=== PATIENT | male | born 1965 | race Caucasian/White ===

== ENCOUNTER → 2016-12-31 | Outpatient (CLI) | payer OTHER ==
[~2016-12-31] VITALS: Ht 172.7 cm; Wt 71.3 kg
[~2016-12-31] MED LIST: BUPR-79 PO; CARB1TAB8 PO; ESOM20CA PO; GABA-113 PO; IMT100 PO; OXYC-643 PO; PRAM0.256 PO; PROM25TA PO; PROP20TA67 PO; SUMA6KIT IM; TOPI100T20 PO; TOPI50TA24 PO; ZOLP10TA6 PO
[2016-12-31 13:17] VITALS: BP 122/79; PULSE 58; Ht 172.7 cm; Wt 71.3 kg
== END | disposition home or self-care (01) ==
LOC: C.NEUR 12:57
PROVIDERS: ATTEND Internal Medicine Pulmonary Disease
DX: G47.30 Sleep apnea, unspecified (principal); G25.81 Restless legs syndrome

== ENCOUNTER → 2017-02-28 | Outpatient (CLI) | payer OTHER ==
[~2017-02-28] MED LIST changes: +GADAVIST IV PRN
--- NOTE | 2017-02-28 21:16 | DIAGNOSTIC IMAGING REPORT ---
MRI OF THE BRAIN WITHOUT AND WITH IV CONTRAST CLINICAL HISTORY: Migraine headaches. Remote traumatic history. Abnormal MRI of the brain. COMPARISON STUDY: MRI the brain November 15, 2015. TECHNIQUE: Utilizing a 1.5 Margie magnet and dedicated coil, multiplanar, multiecho imaging of the brain was performed pre and postcontrast administration. IV administration of 7 mL of Gadavist contrast was uneventful. FINDINGS: There are no areas of restricted diffusion. No acute intracranial hemorrhage, midline shift or mass effect is present. A subtle cortical focus of increased T2 signal within the posterior left temporal lobe is unchanged since initial MRI of August 30, 2009. There is no associated enhancement. There is no intracranial mass. Ventricular system is unremarkable. Basilar cisterns are patent. There are no extra-axial collections. Flow-voids for the major intracranial vessels are present. Few punctate foci of white matter T2 hyperintensity are unchanged. No new areas of signal abnormality are identified. IMPRESSION: 1. No acute intracranial findings. 2. No change in appearance of the brain. Stable focus of increased cortical T2 signal within the posterior left temporal lobe since initial MRI of August 30, 2009. 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 No associated enhancement. Electronically signed by: Cachorro Nelson M.D. 02/28/2017 9:14 PM Dictated Date/Time: 02/28/2017 9:04 PM
== END | disposition home or self-care (01) ==
LOC: C.MRI 19:43
PROVIDERS: ATTEND Psychiatry & Neurology Neurology
DX: R94.02 Abnormal brain scan (principal)

== ENCOUNTER → 2017-07-18 | Outpatient (CLI) | payer OTHER ==
[~2017-07-18] VITALS: Ht 172.7 cm; Wt 67.9 kg
[~2017-07-18] MED LIST changes: -BUPR-79 PO; -ESOM20CA PO; -GADAVIST IV PRN
[2017-07-18 08:50] VITALS: BP 127/79; PULSE 64; Ht 172.7 cm; Wt 67.9 kg
== END | disposition home or self-care (01) ==
LOC: C.NEUR 08:25
PROVIDERS: ATTEND Internal Medicine Pulmonary Disease
DX: G47.33 Obstructive sleep apnea (adult) (pediatric) (principal)

== ENCOUNTER 2018-07-08 20:50 | Emergency (ER) | payer OTHER ==
[~2018-07-08] VITALS: Ht 172.7 cm; Wt 69.9 kg
[~2018-07-08 20:50] MED LIST changes: +IBUP-1428 PO; -OXYC-643 PO; -PRAM0.256 PO; +PRAM0.259 PO
[2018-07-08 21:01] VITALS: Ht 172.7 cm; Wt 69.9 kg
[2018-07-08] MEDS ORDERED: PROPARACAINE HCL 0.5% OP SOLN 15 ML BTL OP STA (21:47)
[2018-07-08] MEDS ORDERED: DIPHTHERIA/TETANUS/PERTUSSIS 0.5 ML SYR/VIAL IM. ONE (22:30)
[2018-07-08] MEDS ORDERED: OXYCODONE IR HOME PACK PO ONE (22:45)
[2018-07-08] MEDS ORDERED: CIPROFLOXACIN HCL 0.3% OP SOLN 2.5 ML BTL OP ONE (22:45)
[2018-07-08 23:09] VITALS: BP 123/79; PULSE 64; TEMP 36.7; O2SAT 98
--- NOTE | 2018-07-09 05:36 | EMERGENCY ROOM VISIT NOTE ---
History First contact with patient: 21:47 Chief Complaint: EYE PAIN Stated Complaint: LEFT EYE PAIN History of Present Illness The patient is a 53 year old male who presents to the Emergency Room with complaints of worsening pain in his left eye over the past day. 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 His pain is only in the left eye, and he is having difficulty opening it. Patient also has a history of migraines, and this eye discomfort seems to be causing him some nausea and exacerbated headache symptoms. Patient is unsure of his tetanus status. He is not wearing his glasses because of the pain. Light exacerbates the pain which she currently rates a 10/10. The pain is very sharp and has been slowly increasing over the past several hours. He does not have floaters or flashes of light. No numbness or paresthesias throughout the upper lower extremities. No lightheadedness or dizziness. Review of Systems More than 10 systems were reviewed and otherwise negative with the exception of history of present illness. Past Medical/Surgical History Medical Problems: (1) Finger amputation, traumatic Family History No pertinent family history Social History Smoking Status: Current Every Day Smoker Marital Status: Occupation Status: disabled Current/Historical Medications Scheduled Carbamazepine (Carbamazepine Er), 200 MG PO BID Gabapentin (Neurontin), 300 MG PO HS Pramipexole Dihydrochloride (Pramipexole Dihydrochlori), 0.5 MG PO UD Promethazine (Phenergan), 25 MG PO TID PRN Propranolol (Inderal), 20 MG PO BID Topiramate (Topamax), 50 MG PO QAM Topiramate (Topamax), 100 MG PO HS Scheduled PRN Ibuprofen (Motrin), 800 MG PO BID PRN for Pain Sumatriptan Succinate (Imitrex), 100 MG PO DIRECTED PRN for Migraine Sumatriptan Succinate (Imitrex Statdose), 6 MG IM UD PRN for Migraine Zolpidem Tartrate (Zolpidem Tartrate), 10 MG PO HS PRN for Sleep Physical Exam Vital Signs Date Time Temp Pulse Resp B/P (MAP) Pulse Ox O2 Delivery O2 Flow Rate FiO2 07/08/18 23:09 36.7 64 18 123/79 98 07/08/18 21:01 36.7 64 18 123/79 98 Room Air Right Eye Acuity: no regular corrective glasses: 20/100 Left Eye Acuity: Unable to test: too blurry Physical Exam VITALS: Vitals are noted on the nurse's note and reviewed by myself. Vital signs stable. GENERAL: Well-developed, well-nourished, white male who appears in moderate to severe discomfort. He is resting in a darkened ER room. EYES: Pupils equal round and reactive to light and accommodation. Left conjunctiva is injected. There appears to be a foreign body on the cornea at roughly 6:00. Alcaine drops were placed into the left eye which significantly improve the patient's discomfort. The foreign body was successfully removed with a 27-gauge needle. Repeat examination shows some residual rust, and some very small discoloration into the anterior chamber of the left eye. The pupil appears normal. No hyphema. Extraocular movements intact. Fluorescein exam shows abrasion in the area of the previous foreign body. NOSE: Patent, turbinates without inflammation or discharge. MOUTH: Mucous membranes moist. Tonsils are not enlarged. Pharynx without erythema, blood, or exudate. Uvula midline. Airway patent. NECK: Supple without nuchal rigidity. No lymphadenopathy. No thyromegaly. Cervical spine is nontender. HEART: Regular rate and rhythm without murmurs gallops or rubs. LUNGS: Clear to auscultation bilaterally without wheezes, rales or rhonchi. No retractions or accessory muscle use. Medical Decision & Procedures Medications Administered Medications (Trade) Dose Ordered Sig/Serjio Route Start Time Stop Time Status Last Admin Dose Admin Diphtheria/ Pertussis/Tetanus Vacc (Adacel Inj) 0.5 ml ONCE ONCE IM. 07/08/18 22:30 07/08/18 22:31 DC 07/08/18 22:30 0.5 ML Ciprofloxacin HCl (Ciprofloxacin 0.3% Op Soln) 2 drops NOW ONCE OP 07/08/18 22:45 07/08/18 22:46 DC 07/08/18 23:04 2 DROPS Oxycodone HCl (Roxicodone Immediate Rel 5MG Home Pack) 1 homepack UD ONCE PO 07/08/18 22:45 07/08/18 22:46 DC 07/08/18 23:04 1 HOMEPACK ED Course Physical exam and history were performed. Nursing notes, EMR, and Medication List were personally reviewed. Patient appears to have a foreign body of his left eye. 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 I did remove the foreign body with a 27-gauge tuberculin needle without difficulty. On reevaluation however, the patient appears to have some discoloration of the iris in the anterior chamber. I am not able to discern a distinct foreign body, and I do not see other appreciable exam findings that strongly suggest a penetrating injury. I did discuss the case with the on-call truck driver instructor, Dr. Syed, who recommends antibiotic eyedrops and follow-up in a few hours when the office opens. The patient will be given a home pack of Ciloxan and oxycodone. He is to come back to the ER if he has any difficulty being evaluated by ophthalmology in the morning. The patient was pleased with this plan and voiced understanding. He rated his discomfort a 4/10 at the time of departure. The chart was completed utilizing [employer] Speech Voice Recognition Software. Grammatical errors, random word insertions, pronoun errors, and incomplete sentences are an occasional consequence of this system due to software limitations, ambient noise, and hardware issues. Any formal questions or concerns about the content, text, or information contained within the body of this dictation should be directly addressed to the provider for clarification. . Medical Decision Differential diagnosis includes, but is not limited to: Corneal abrasion, foreign body, Welders flash, and others Impression Primary Impression: Foreign body in eye Departure Information Dispostion Home / Self-Care Condition GOOD Referrals Dao Lo M.D. Forms HOME CARE DOCUMENTATION FORM, IMPORTANT VISIT INFORMATION Patient Instructions My [facility] Additional Instructions You were seen and evaluated today on an emergency basis only. This is not a substitute for, or an effort to provide, complete comprehensive medical care. It is not possible to recognize and treat all injuries or illnesses in a single emergency department visit. For this reason it is recommended that you followup with Ophthalmology, Dr. Lo's office, tomorrow morning. Call the office at 8 AM and let them know we spoke with Dr. Lo and he would like you evaluated. Use Ciloxan Eye Drops: Instill 1-2 drops into the conjunctival sac every 2 hours while awake for 2 days and 1-2 drops every 4 hours while awake for the next 5 days Oxycodone (OxyIR) 5mg (Homepack): Take ONE pill by mouth every SIX hours for breakthrough pain. Avoid alcohol, operating machinery or dangerous equipment, working on ladders or roofs, DRIVING, or situations where being under the influence may be dangerous. It is recommended to use an tfmr-[id number]-[id number] stool softener such as Colace, 100mg twice daily while taking this medication to avoid constipation. Your tetanus was updated today. You are welcome to return to the emergency department anytime with new, worsening, or concerning symptoms.
== END 2018-07-08 23:10 | disposition home or self-care (01) ==
LOC: C.EDB 20:51 → C.EDD 23:10
DX: S00.252A Superficial foreign body of left eyelid and periocular area, initial encounter (principal); W26.8XXA Contact with other sharp object(s), not elsewhere classified, initial encounter; Z23 Encounter for immunization; R11.0 Nausea; F17.200 Nicotine dependence, unspecified, uncomplicated; Z79.899 Other long term (current) drug therapy; Z86.69 Personal history of other diseases of the nervous system and sense organs

== ENCOUNTER 2024-01-05 08:52 | Observation (INO) ==
--- NOTE | 2024-01-05 09:31 | Emergency Department Note ---
Impression & Plan RUQ abdominal pain, Acute cholecystitis ED Provider Note NAME: SUGAR WISE AGE: 58 SEX: M : 1965 ARRIVES VIA: Walk-In INFORMANT: [Patient] ED PROVIDER(S): [Bo Hernandez MD] CHIEF COMPLAINT: Abdominal pain HISTORY OF PRESENT ILLNESS: The patient is a 58-year-old male presents with over 10 days of abdominal pain. He states he started off not being able to have a bowel movement. He saw his doctors office and enemas were prescribed. He also has tried MiraLAX. Patient states he had an episode or 2 of vomiting but mostly, it was not being able to move his bowels. Finally, his bowels began to move. Despite that though, he has had increasing epigastric and right upper quadrant abdominal pain. He thought he may be pulled a muscle when he vomited. The pain does seem worse at times to eat, sometimes worse when he moves. There has been no increased cough, no fever. No urinary burning. The patient is scheduled to have some imaging of his gallbladder this upcoming week. As his pain was increasing, he presents for evaluation. He denies any previous surgical history. PMHx/PSHx/Social Hx: See Below PHYSICAL EXAM: GENERAL: Patient is in no acute distress. HEENT: No acute trauma, normocephalic atraumatic, mucous membranes moist, no nasal congestion. NECK: No stridor, no adenopathy, no meningismus, trachea is midline. LUNGS: Clear to auscultation bilaterally, no wheeze, no rhonchi, breath sounds equal. Breath sounds diminished bilaterally. HEART: Without murmurs gallops or rubs, regular rate and rhythm. ABDOMEN: Soft, tender in the right upper quadrant and right upper lateral abdomen, no abdominal distention. His pain did worsen with movement. EXTREMITIES: No cyanosis, full range of motion of all the joints without pain or difficulty. NEUROLOGIC: Oriented x 3, no acute motor or sensory deficits, no focal weakness. SKIN: No jaundice, no diaphoresis. DIFFERENTIAL DIAGNOSIS: Musculoskeletal pain, biliary colic, pancreatitis, ulcer, bowel perforation, constipation, renal colic, among others. EMERGENCY DEPARTMENT PROCEDURES: MEDICAL DECISION MAKING: There is no leukocytosis or concerning anemia. There is a normal platelet count. No renal failure or significant electrolyte abnormality. No concerning liver enzyme elevation. No evidence for pancreatitis. ECG shows a sinus bradycardia, no ischemia or dysrhythmia. Cardiac enzyme testing x 1 is not consistent with acute cardiac injury. Chest x-ray does not show mediastinal widening, pneumonia or free air. Abdominal and pelvis CT shows acute cholecystitis. No bowel obstruction. On exam, patient was tender in the right upper quadrant. He was not febrile or toxic. Patient received IV saline for hydration. He received IV Zofran for nausea. He received IV Toradol for pain, IV fentanyl for pain. He was given IV cefepime as empiric antibiotic coverage. Patient was told results of his workup. He is going require a hospital stay. He understands that he is going to require surgical intervention. I spoke with case management and the on-call hospitalist. I spoke with the on- call general surgeon-Dr. Ahumada. Prior/Outside records/notes reviewed: None ECG per my interpretation: Indication was abdominal pain. The ECG shows a sinus bradycardia with a rate of 52. There is no ST elevation, no PVCs. There is a nonspecific interventricular conduction delay. QTc is 407 Continuous Cardiac Monitoring per my interpretation: An order was placed for continuous cardiac monitoring. The monitor shows a rate of 63 with normal sinus rhythm. Imaging/x-ray results per my interpretation: Chest x-ray does not show mediastinal widening, pneumonia or pneumothorax. I see no free air. Chronic Medical/Social conditions affecting care: Care/Management discussed with: Case management, the on-call hospitalist. General surgery-Dr. Ahumada. Level of care consideration(s): After review of the information above and other included data: --I believe the patient requires escalation of care to admission DISPOSITION: Admission with surgical consult. Past Med/Surg History Medical History Traumatic brain injury Migraines Finger amputation, traumatic Surgical History History of nasal surgery History of surgical amputation of finger of left hand History of shoulder surgery History of facial surgery Family History Grandfather (Maternal) Aneurysm Grandmother (Maternal) Diabetes Grandfather (Maternal) Migraine headache Father Heart problem Brother Heart problem Social History Smoking Status: Current every day smoker Tobacco Type: Cigarettes Hx Alcohol Use: No Hx Substance Use: No Preferred Language: Kinyarwanda marital status: Current Living Situation: Spouse Feels Safe at Home: Yes Allergies Allergies Allergy/AdvReac Type Severity Reaction Status Date / Time morphine Allergy Intermediate Hives Verified 01/05/24 11:56 Penicillins Allergy Unknown Unknown Verified 01/05/24 11:56 Home Meds Home Medications Medication Instructions Recorded Confirmed carbamazepine 200 mg 200 mg PO BID 01/05/24 01/05/24 tablet,extended release,12 hr famotidine 20 mg tablet 20 mg PO DAILY 01/05/24 01/05/24 pramipexole 0.25 mg tablet 0.25 mg PO BID 01/05/24 01/05/24 propranolol 80 mg capsule,24 80 mg PO DAILY 01/05/24 01/05/24 hr,extended release Previous Rx's Medication Instructions Recorded syringe with needle 3 mL 25 x 5/8" #1 ea 04/26/23 (BD SafetyGlide Syringe) topiramate 50 mg tablet 50 mg PO DAILY 30 days #30 tabs 09/24/23 oxcarbazepine 300 mg tablet 300 mg PO HS #30 tabs 10/15/23 erenumab-aooe 140 mg/mL 140 mg subcut .COMPLEX 90 days #3 11/19/23 subcutaneous auto-injector mL (Aimovig Autoinjector) gabapentin 600 mg tablet 600 mg PO BID 30 days #60 tabs 11/19/23 sumatriptan succinate 6 mg/0.5 mL 6 mg (0.5 mL) subcut .COMPLEX PRN 11/19/23 subcutaneous solution Migraine Headache 30 days #2.5 mL zolpidem 10 mg tablet 10 mg PO HS 30 days #30 tabs 11/19/23 [id number]-tilmydns 1 tab PO Q4H PRN pain #15 tabs 12/04/23 50 mg-325 mg-40 mg tablet Results & Data (ED) Vital Signs Vital Signs - 24 hr 01/05/24 08:55 01/05/24 09:05 01/05/24 11:30 Temperature 36.7 C Temperature Source Temporal Artery Scan Pulse Rate 63 Pulse Rate [Apical] 58 L Respiratory Rate 18 16 Respiratory Effort / Characteristics Non-Labored Spontaneous Respiratory Depth Normal Respiratory Pattern Regular Blood Pressure 122/85 Blood Pressure [Left Arm] 135/78 Blood Pressure Mean 97 Blood Pressure Mean [Left Arm] 97 Pulse Oximetry 99 96 99 Oxygen Delivery Method Room Air Room Air Room Air Sepsis Recent Fever Within 48 Hours No Sepsis New/Unexplained Change in Mental Status N/A Sepsis Action Taken by Nursing No Action Required 01/05/24 11:59 01/05/24 12:33 Temperature Temperature Source Pulse Rate 58 L Pulse Rate [Apical] 55 L Respiratory Rate 14 Respiratory Effort / Characteristics Non-Labored Spontaneous Respiratory Depth Normal Respiratory Pattern Regular Blood Pressure Blood Pressure [Left Arm] 128/76 Blood Pressure Mean Blood Pressure Mean [Left Arm] 93 Pulse Oximetry 97 Oxygen Delivery Method Room Air Sepsis Recent Fever Within 48 Hours Sepsis New/Unexplained Change in Mental Status Sepsis Action Taken by Detention Medications Current Medication List: was personally reviewed by me Laboratory Data Attestation: I reviewed the patient's lab results. 01/05/24 09:37 01/05/24 09:37 Lab Results 01/05/24 Range/Units 09:37 WBC 7.79 (4.8-10.8) K/ul RBC 4.85 (4.70-6.10) M/uL Hgb 15.4 (14.0-18.0) g/dl Hct 46.5 (42.0-52.0) % MCV 95.9 (80.0-100.0) fL MCH 31.8 (25.0-34.0) pg MCHC 33.1 (32.0-36.0) g/dL RDW Std Deviation 45.5 (36.4-46.3) fL RDW Coeff of [place]upe 12.8 (11.5-14.5) % Plt Count 262 (130-400) K/uL MPV 9.1 L (9.4-12.4) fL Immature Gran % (Auto) 0.4 % Neut % (Auto) 64.0 % Lymph % (Auto) 25.5 % [place] % (Auto) 8.1 % Eos % (Auto) 1.2 % Baso % (Auto) 0.8 % Neut # (Auto) 4.99 (1.40-6.50) K/uL Lymph # (Auto) 1.99 (1.20-3.40) K/uL [place] # (Auto) 0.63 H (0.11-0.59) K/uL Eos # (Auto) 0.09 (0.00-0.50) K/uL Baso # (Auto) 0.06 (0.00-0.20) K/uL Immature Gran # (Auto) 0.03 (0.01-0.20) K/uL Sodium 135 L (136-145) mmol/L Potassium 3.7 (3.5-5.1) mmol/L Chloride 103 (98-107) mmol/L Carbon Dioxide 25 (21-32) mmol/L Anion Gap 7 (3-11) BUN 10 (6-23) mg/dl Creatinine 1.09 (0.6-1.4) mg/dl Est Cr Clr Drug Dosing 73.2 ml/min Est GFR ( Amer) 87.5 ml/min Est GFR (Non-Af Amer) 75.5 ml/min BUN/Creatinine Ratio 9.2 L (10-20) Glucose 93 (70-99(Fasting)) mg/dl Calcium 9.5 (8.6-10.3) mg/dl Total Bilirubin 0.5 (0.2-1.0) mg/dl AST 11 L (13-39) U/L ALT 7 (7-52) U/L Alkaline Phosphatase 70 (34-104) U/L Troponin I High Sens 3.1 (0-20) pg/ml Total Protein 7.6 (6.0-8.3) gm/dl Albumin 4.5 (3.4-5.0) gm/dl Globulin 3.1 (2.5-4.0) gm/dl Albumin/Globulin Ratio 1.5 (0.9-2) Lipase 31 (11-82) U/L Administered Medications Fentanyl Citrate (Fentanyl Citrate Pf 100 Mcg/2 Ml Vial) 50 mcg IV Q15M PRN PRN Reason: Pain Stop: 01/19/24 11:58 Last Admin: 01/05/24 13:50 Dose: 50 mcg Documented By: Miscellaneous ( Floseal Hemostatic Matrix 10ml) 10 ml TOP ONCE ONE Stop: 01/05/24 16:38 Last Admin: 01/05/24 16:38 Dose: 10 ml Documented By: [facility] Discontinued Medications Bupivacaine HCl (Bupivacaine 0.5 % 5 Mg/1 Ml Mpf 30ml Vial) Confirm Administered Dose 30 ml .ROUTE .STK-MED ONE Stop: 01/05/24 14:16 Last Admin: 01/05/24 15:05 Dose: 30 ml Documented By: SINDY Sodium Chloride (Nss) 500 mls @ 999 mls/hr IV .Q31M STA Stop: 01/05/24 09:35 Last Infusion: 01/05/24 10:53 Dose: Infused Documented By: Admin: 01/05/24 09:44 Dose: 999 mls/hr Documented By: BREONNA Sodium Chloride (Nss) 1,000 mls @ 999 mls/hr IV .Q1H1M ONE Stop: 01/05/24 10:18 Last Infusion: 01/05/24 10:53 Dose: Infused Documented By: Admin: 01/05/24 09:44 Dose: 999 mls/hr Documented By: BREONNA Cefepime HCl (Maxipime) 2,000 mg in 20 mls @ 5 mls/min IV NOW STA; Protocol Stop: 01/05/24 11:39 Last Admin: 01/05/24 11:43 Dose: 5 mls/min Documented By: BREONNA Metronidazole (Flagyl) 500 mg in 100 mls @ 100 mls/hr IV NOW STA; Protocol Stop: 01/05/24 12:54 Last Admin: 01/05/24 13:09 Dose: 100 mls/hr Documented By: MERCEDES Ioversol (Optiray 320 500ml) 94 ml IV ONCE ONE Stop: 01/05/24 11:15 Last Admin: 01/05/24 11:15 Dose: 94 ml Documented By: CORNELIUS Ketorolac Tromethamine (Ketorolac Tromethamine 15 Mg/Ml Vial) 10 mg IV NOW ONE Stop: 01/05/24 09:19 Last Admin: 01/05/24 09:42 Dose: 10 mg Documented By: BREONNA Imaging Data Radiologist's Impression: Chest X-Ray 01/05/24 09:05 XR chest 1V portable CLINICAL HISTORY: Abdominal pain. COMPARISON STUDY: Chest radiograph October 17, 2009. FINDINGS: Lung volumes are normal. Lungs are clear. There is no pneumothorax or pleural effusion. Cardiac size is normal. Mediastinal contours are normal. There is no evidence for pulmonary edema. There is no lucency under the hemidiaphragms to suggest pneumoperitoneum on upright chest radiograph. IMPRESSION: No acute cardiopulmonary findings. ACT 112: Negative or not required by law. Electronically signed by: Cachorro Nelson M.D. 01/05/2024 9:40 AM Abdomen/Pelvis CT 01/05/24 09:17 CT OF THE ABDOMEN AND PELVIS WITH CONTRAST CLINICAL HISTORY: Right upper quadrant/epigastric pain. COMPARISON STUDY: CT of the abdomen and pelvis April 28, 2019. TECHNIQUE: Following IV administration of 94 mL of Optiray, axial images of the abdomen and pelvis were obtained from the lung bases to the proximal femurs. Images were reviewed in the axial, sagittal, and coronal planes. IV contrast was administered without complication. Automated exposure control was utilized for the study. A dose lowering technique was utilized adhering to the principles of ALARA. CT DOSE: 469.79 mGy.cm FINDINGS: Lung bases are unremarkable. No pneumatosis, free air or portal venous gas is present. No biliary or pancreatic ductal dilatation. There are no hepatic lesions. Multiple gallstones within the gallbladder are present. The gallbladder is mildly distended. There is mild gallbladder wall thickening with a small amount of pericholecystic fluid. Spleen, adrenal glands, kidneys and pancreas are unremarkable. Is no hydronephrosis. Caliber and wall thickness of small and large bowel are normal. The appendix is normal. There is no lymphadenopathy. No fluid collections are present. Major vasculature is patent. IMPRESSION: 1. Multiple gallstones within a mildly distended gallbladder. Mild gallbladder wall thickening with pericholecystic fluid. The findings favor acute cholecystitis. Chronic cholecystitis could appear similar although is considered less likely. A nuclear medicine hepatobiliary scan could be obtained as indicated. 2. No biliary ductal dilatation. 3. Normal appendix. No bowel obstruction. No bowel wall thickening. ACT 112: Negative or not required by law. Electronically signed by: Cachorro Nelson M.D. 01/05/2024 11:29 AM Discharge Plan Visit Data Chief Complaint: Abdominal Pain Stated Complaint: ABD PAIN ED Provider: Bo Hernandez Discharge Problem: RUQ abdominal pain, Acute cholecystitis Patient Disposition: Admitted As Inpatient Condition: Fair
--- NOTE | 2024-01-05 09:41 | XRay Report ---
XR chest 1V portable CLINICAL HISTORY: Abdominal pain. COMPARISON STUDY: Chest radiograph October 17, 2009. FINDINGS: Lung volumes are normal. Lungs are clear. There is no pneumothorax or pleural effusion. Car diac size is normal. Mediastinal contours are normal. There is no evidence for pulmonary edema. There is no lucency under the hemidiaphragms to suggest pneumoperitoneum on upright chest radiograph. IMPRESSION: No acute cardiopulmonary findings. ACT 112: Negative or not required by law. Electronically signed by: Cachorro Nelson M.D. 01/05/2024 9:40 AM
[2024-01-05] MEDS: KETOROLAC TROMETHAMINE 15 MG/ML VIAL IV ONE (09:42)
[2024-01-05] MEDS: SODIUM CHLORIDE 0.9% 1,000 ML IV ONE (09:44)
[2024-01-05] MEDS: SODIUM CHLORIDE 0.9% 500 ML IV STA (09:44)
[2024-01-05 10:27] LABS: Basophils # (auto) 0.06 K/uL (0.00-0.20); Basophils % (auto) 0.8 %; Eosinophils # (auto) 0.09 K/uL (0.00-0.50); Eosinophils % (auto) 1.2 %; Hematocrit (blood only) 46.5 % (42.0-52.0); Hemoglobin 15.4 g/dl (14.0-18.0); Immature Granulocytes # (auto) 0.03 K/uL (0.01-0.20); Immature Granulocytes % (auto) 0.4 %; Lymphocytes # (auto) 1.99 K/uL (1.20-3.40); Lymphocytes % (auto) 25.5 %; Mean Corpuscular Hemoglobin 31.8 pg (25.0-34.0); Mean Corpuscular Hgb Conc 33.1 g/dL (32.0-36.0); Mean Corpuscular Volume 95.9 fL (80.0-100.0); Mean Platelet Volume 9.1 fL (9.4-12.4); Monocytes # (auto) 0.63 K/uL (0.11-0.59); Monocytes % (auto) 8.1 %; Neutrophils # (auto) 4.99 K/uL (1.40-6.50); Platelet Count 262 K/uL (130-400); RDW Coefficient of Variation 12.8 % (11.5-14.5); RDW Standard Deviation 45.5 fL (36.4-46.3); Red Blood Count 4.85 M/uL (4.70-6.10); White Blood Count 7.79 K/ul (4.8-10.8)
[2024-01-05 10:41] LABS: Albumin Globulin Ratio 1.5 (0.9-2); Albumin Level 4.5 gm/dl (3.4-5.0); BUN Creatinine Ratio 9.2 (10-20); Bilirubin,Total 0.5 mg/dl (0.2-1.0); Calcium 9.5 mg/dl (8.6-10.3); Creatinine Clr Calc Pharmacy 73.2 ml/min; Est GFR (African American) 87.5 ml/min; Est GFR (Non-African American) 75.5 ml/min; Globulin 3.1 gm/dl (2.5-4.0); Potassium 3.7 mmol/L (3.5-5.1); Total Protein 7.6 gm/dl (6.0-8.3)
[2024-01-05 10:48] LABS: Troponin I High Sensitivity 3.1 pg/ml (0-20)
[2024-01-05] MEDS: OPTIRAY 320 500ml IV ONE (11:15)
--- NOTE | 2024-01-05 11:31 | CT Scan Report ---
CT OF THE ABDOMEN AND PELVIS WITH CONTRAST CLINICAL HISTORY: Right upper quadrant/epigastric pain. COMPARISON STUDY: CT of the abdomen and pelvis April 28, 2019. TECHNIQUE: Following IV administration of 94 mL of Optiray, axial images of the abdomen and pelvis we re obtained from the lung bases to the proximal femurs. Images were reviewed in the axial, sagittal, and coronal planes. IV contrast was administered without complication. Automated exposure control wa s utilized for the study. A dose lowering technique was utilized adhering to the principles of ALARA . CT DOSE: 469.79 mGy.cm FINDINGS: Lung bases are unremarkable. No pneumatosis, free air or portal venous gas is present. No b iliary or pancreatic ductal dilatation. There are no hepatic lesions. Multiple gallstones within the gallbladder are present. The gallbladder is mildly distended. There is mild gallbladder wall thickeni ng with a small amount of pericholecystic fluid. Spleen, adrenal glands, kidneys and pancreas are unr emarkable. Is no hydronephrosis. Caliber and wall thickness of small and large bowel are normal. The appendix is normal. There is no lymphadenopathy. No fluid collections are present. Major vasculature is patent. IMPRESSION: 1. Multiple gallstones within a mildly distended gallbladder. Mild gallbladder wall thickening with p ericholecystic fluid. The findings favor acute cholecystitis. Chronic cholecystitis could appear sharif lar although is considered less likely. A nuclear medicine hepatobiliary scan could be obtained as in dicated. 2. No biliary ductal dilatation. 3. Normal appendix. No bowel obstruction. No bowel wall thickening. ACT 112: Negative or not required by law. Electronically signed by: Cachorro Nelson M.D. 01/05/2024 11:29 AM
[2024-01-05] MEDS: CEFEPIME 2,000 MG/20 ML VIAL IV STA (11:43)
[2024-01-05] MEDS: metroNIDAZOLE 500 MG/100 ML BAG IV STA (13:09)
--- NOTE | 2024-01-05 13:21 | History & Physical Report ---
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 Acute cholecystitis Admit to medical Keep n.p.o. Discussed with general surgery patient will proceed to the OR this afternoon IV LR at 125 cc/h Due to severe allergy to morphine we will continue with IV acetaminophen and IV Toradol as needed for pain IV cefepime and IV Flagyl for empiric antibiotic will await further recs from surgery post operatively Tobacco abuse encourage cessation nicotine patch ordered Hx of TBI with residual cog deficit follows neuro continue current medication regimen IRASEMA non compliant with CPAP DVT ppx: SCDS for now given upcoming surgery, recommend initiating chemical prophylaxis when able FULL CODE PCP: Dr. Sahu Patient was seen and examined in collaboration with, Dr. Caceres, please see addendum A total of 76 minutes was spent coordinating, documenting, and providing care for this patient excluding time spent in the performance of separately billed se rvices. This included personally viewing all current laboratories and imaging studies, medication reconciliation, outpatient chart review, and discussion with specialists. History of Present Illness Chief Complaint: Abdominal pain. 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 Patient's is at bedside also helps elicit history outpatient records were reviewed. He has been seen and evaluated in outpatient setting for similar symptoms. He was seen on 01/03 by PCP due to epigastric pain, right upper quadrant pain and low back pain that comes and goes. He describes his pain that comes and goes as burning but with occasional sharp episodes. He has overall had decreased appetite and has been following a bland diet per PCP. Pain tends to become worse several hours after eating. He also notes over the last 2 weeks having difficulty with constipation which is very unusual for him. He has been using imeo-ydx-gvukfur MiraLAX and eventually had a bowel movement 4 days ago, but nothing since. He denies any fever, chills, sweats, lightheadedness, dizziness, chest pain, shortness of breath, cough, hematemesis, melena, hematochezia, dysuria, increased urgency or frequency with urination. He has had prior history of surgery, mostly orthopedic. He denies any prior issue receiving anesthesia. He does have a severe allergic reaction to morphine. He admits to being able to ambulate 1 flight of steps without getting chest pain or shortness of breath. He denies any prior history of cardiac disease. In ED patient remained hemodynamically stable. He did not meet criteria for sepsis. His CT abdomen pelvis was consistent with multiple gallstones with a mildly distended gallbladder and mild collateral thickening with pericholecystic fluid. This was concerning for acute cholecystitis. In ED he received IV cefepime and IV Flagyl. He has been n.p.o. Allergies Allergy/AdvReac Type Severity Reaction Status Date / Time morphine Allergy Intermediate Hives Verified 01/05/24 11:56 Penicillins Allergy Unknown Unknown Verified 01/05/24 11:56 Home Medications Medication Instructions Recorded Confirmed Type syringe with needle 3 mL 25 x 5/8" #1 ea 04/26/23 01/05/24 Rx (BD SafetyGlide Syringe) topiramate 50 mg tablet 50 mg PO DAILY 30 days #30 tabs 09/24/23 01/05/24 Rx oxcarbazepine 300 mg tablet 300 mg PO HS #30 tabs 10/15/23 01/05/24 Rx erenumab-aooe 140 mg/mL 140 mg subcut .COMPLEX 90 days #3 11/19/23 01/05/24 Rx subcutaneous auto-injector mL (Aimovig Autoinjector) gabapentin 600 mg tablet 600 mg PO BID 30 days #60 tabs 11/19/23 01/05/24 Rx sumatriptan succinate 6 mg/0.5 mL 6 mg (0.5 mL) subcut .COMPLEX PRN 11/19/23 01/05/24 Rx subcutaneous solution Migraine Headache 30 days #2.5 mL zolpidem 10 mg tablet 10 mg PO HS 30 days #30 tabs 11/19/23 01/05/24 Rx iicnfbwjbj-vlnjtrkhsqzwy-bfzlghun 1 tab PO Q4H PRN pain #15 tabs 12/04/23 01/05/24 Rx 50 mg-325 mg-40 mg tablet carbamazepine 200 mg 200 mg PO BID 01/05/24 01/05/24 History tablet,extended release,12 hr famotidine 20 mg tablet 20 mg PO DAILY 01/05/24 01/05/24 History pramipexole 0.25 mg tablet 0.25 mg PO BID 01/05/24 01/05/24 History propranolol 80 mg capsule,24 80 mg PO DAILY 01/05/24 01/05/24 History hr,extended release Past Med/Surg History Medical History Traumatic brain injury Migraines Finger amputation, traumatic Surgical History History of nasal surgery History of surgical amputation of finger of left hand History of shoulder surgery History of facial surgery Family History Grandfather (Maternal) Aneurysm Grandmother (Maternal) Diabetes Grandfather (Maternal) Migraine headache Father Heart problem Brother Heart problem Social History Smoking Status: Current every day smoker Tobacco Type: Cigarettes Hx Alcohol Use: No Hx Substance Use: No Preferred Language: Yoruba Communication Ability: Effective [employer] Member Required: No Beliefs That Will Affect Care: None marital status: Current Living Situation: Spouse Other Information That Helps Us Care for You: No Feels Safe at Home: Yes Safety Concerns: Feels Safe At This Time Assistive Devices: Glasses Review of Systems Review of Systems: All systems reviewed & are unremarkable except as noted in HPI & below Physical Exam Physical Exam: Constitutional: WD/WN, unkempt M, vitals as above, NAD, sitting up in bed, pleasant, conversing easily Head: Normocephalic, Atraumatic Eyes: PERRL, conjunctivae normal, anicteric sclerae ENMT: external ear and nose normal, oropharynx normal Neck: trachea midline, no thyromegaly normal visual inspection Respiratory: normal respiratory effort, lungs clear to auscultation, no wheeze, rales, rhonchi. Normal insp/exp effort, no accessory muscle use Cardiovascular: RRR, no murmur, no edema Vessels: no JVD or carotid bruit Chest: normal inspection of chest Abdomen: normal bowel sounds, soft, +TTP RUQ, No rebound, +murphys, no hepatosplenomegaly Musculoskeletal: no cyanosis or clubbing, extremities motor strength 5/5 Skin: no rashes, warm and dry normal turgor Neurologic: PERRL, EOMI, accommodation nl, no face palsy, no dysarthria CN's II-XI intact bilaterally and moves all extremities Psychiatric: A+Ox3, euthymic affect Lymphatic: no cervical or axillary lymphadenopathy : deferred Results & Data Results & Data Vital Signs (Past 12 Hours) Vital Signs Temp Pulse Pulse Resp BP BP Pulse Ox 01/05/24 12:33 55 L 14 128/76 97 01/05/24 11:59 58 L 01/05/24 11:30 58 L 16 135/78 99 01/05/24 09:05 96 01/05/24 08:55 36.7 C 63 18 122/85 99 O2 Del Method 01/05/24 12:33 Room Air 01/05/24 11:59 01/05/24 11:30 Room Air 01/05/24 09:05 Room Air 01/05/24 08:55 Room Air Diagnostic Findings Chest X-Ray 01/05/24 09:05 XR chest 1V portable CLINICAL HISTORY: Abdominal pain. COMPARISON STUDY: Chest radiograph October 17, 2009. FINDINGS: Lung volumes are normal. Lungs are clear. There is no pneumothorax or pleural effusion. Cardiac size is normal. Mediastinal contours are normal. There is no evidence for pulmonary edema. There is no lucency under the hemidiaphragms to suggest pneumoperitoneum on upright chest radiograph. IMPRESSION: No acute cardiopulmonary findings. ACT 112: Negative or not required by law. Electronically signed by: Cachorro Nelson M.D. 01/05/2024 9:40 AM Abdomen/Pelvis CT 01/05/24 09:17 CT OF THE ABDOMEN AND PELVIS WITH CONTRAST CLINICAL HISTORY: Right upper quadrant/epigastric pain. COMPARISON STUDY: CT of the abdomen and pelvis April 28, 2019. TECHNIQUE: Following IV administration of 94 mL of Optiray, axial images of the abdomen and pelvis were obtained from the lung bases to the proximal femurs. Images were reviewed in the axial, sagittal, and coronal planes. IV contrast was administered without complication. Automated exposure control was utilized for the study. A dose lowering technique was utilized adhering to the principles of ALARA. CT DOSE: 469.79 mGy.cm FINDINGS: Lung bases are unremarkable. No pneumatosis, free air or portal venous gas is present. No biliary or pancreatic ductal dilatation. There are no hepatic lesions. Multiple gallstones within the gallbladder are present. The gallbladder is mildly distended. There is mild gallbladder wall thickening with a small amount of pericholecystic fluid. Spleen, adrenal glands, kidneys and pancreas are unremarkable. Is no hydronephrosis. Caliber and wall thickness of small and large bowel are normal. The appendix is normal. There is no lymphadenopathy. No fluid collections are present. Major vasculature is patent. IMPRESSION: 1. Multiple gallstones within a mildly distended gallbladder. Mild gallbladder wall thickening with pericholecystic fluid. The findings favor acute cholecystitis. Chronic cholecystitis could appear similar although is considered less likely. A nuclear medicine hepatobiliary scan could be obtained as indicated. 2. No biliary ductal dilatation. 3. Normal appendix. No bowel obstruction. No bowel wall thickening. ACT 112: Negative or not required by law. Electronically signed by: Cachorro Nelson M.D. 01/05/2024 11:29 AM Medications Administered Medication List Fentanyl Citrate (Fentanyl Citrate Pf 100 Mcg/2 Ml Vial) 50 mcg IV Q15M PRN PRN Reason: Pain Stop: 01/19/24 11:58 Last Admin: 01/05/24 13:50 Dose: 50 mcg Documented By: BREONNA Discontinued Medications Sodium Chloride (Nss) 500 mls @ 999 mls/hr IV .Q31M STA Stop: 01/05/24 09:35 Last Infusion: 01/05/24 10:53 Dose: Infused Documented By: Admin: 01/05/24 09:44 Dose: 999 mls/hr Documented By: BREONNA Sodium Chloride (Nss) 1,000 mls @ 999 mls/hr IV .Q1H1M ONE Stop: 01/05/24 10:18 Last Infusion: 01/05/24 10:53 Dose: Infused Documented By: Admin: 01/05/24 09:44 Dose: 999 mls/hr Documented By: BREONNA Cefepime HCl (Maxipime) 2,000 mg in 20 mls @ 5 mls/min IV NOW STA; Protocol Stop: 01/05/24 11:39 Last Admin: 01/05/24 11:43 Dose: 5 mls/min Documented By: BREONNA Metronidazole (Flagyl) 500 mg in 100 mls @ 100 mls/hr IV NOW STA; Protocol Stop: 01/05/24 12:54 Last Admin: 01/05/24 13:09 Dose: 100 mls/hr Documented By: MERCEDES Ioversol (Optiray 320 500ml) 94 ml IV ONCE ONE Stop: 01/05/24 11:15 Last Admin: 01/05/24 11:15 Dose: 94 ml Documented By: CORNELIUS Ketorolac Tromethamine (Ketorolac Tromethamine 15 Mg/Ml Vial) 10 mg IV NOW ONE Stop: 01/05/24 09:19 Last Admin: 01/05/24 09:42 Dose: 10 mg Documented By: BREONNA ECG Additional Comments: I have independently reviewed and interpreted patient's admitting EKG which revealed: 52 sinus bradycardia, nonspecific intra-ventricular conduction delay, no st or t wave changes COVID-19 Results Results COVID-19 Adm Lab Results: RBC 4.85 M/uL (4.70-6.10) 01/05/24 WBC 7.79 K/ul (4.8-10.8) 01/05/24 Hgb 15.4 g/dl (14.0-18.0) 01/05/24 Hct 46.5 % (42.0-52.0) 01/05/24 Plt Count 262 K/uL (130-400) 01/05/24 Neutrophils (%) (Auto) 64.0 % 01/05/24 Lymphocytes (%) (Auto) 25.5 % 01/05/24 Monocytes # (Auto) 0.63 K/uL (0.11-0.59) H 01/05/24 Eosinophils # (Auto) 0.09 K/uL (0.00-0.50) 01/05/24 Immature Granulocyte % (Auto) 0.4 % 01/05/24 Neutrophils # (Auto) 4.99 K/uL (1.40-6.50) 01/05/24 Lymphocytes # (Auto) 1.99 K/uL (1.20-3.40) 01/05/24 Monocytes # (Auto) 0.63 K/uL (0.11-0.59) H 01/05/24 Eosinophils # (Auto) 0.09 K/uL (0.00-0.50) 01/05/24 Basophils # (Auto) 0.06 K/uL (0.00-0.20) 01/05/24 Immature Granulocyte # (Auto) 0.03 K/uL (0.01-0.20) 4 Na 135 mmol/L (136-145) L 01/05/24 K 3.7 mmol/L (3.5-5.1) 01/05/24 Cl 103 mmol/L (98-107) 01/05/24 CO2 25 mmol/L (21-32) 01/05/24 Anion Gap 7 (3-11) 01/05/24 BUN 10 mg/dl (6-23) 01/05/24 Creatinine 1.09 mg/dl (0.6-1.4) 01/05/24 BUN/Creatinine Ratio 9.2 (10-20) L 01/05/24 Glucose Level 93 mg/dl (70-99(Fasting)) 01/05/24 Ca 9.5 mg/dl (8.6-10.3) 01/05/24 Total Bilirubin 0.5 mg/dl (0.2-1.0) 01/05/24 AST/SGOT 11 U/L (13-39) L 01/05/24 ALT/SGPT 7 U/L (7-52) 01/05/24 Alkaline Phosphatase 70 U/L (34-104) 01/05/24 Total Protein 7.6 gm/dl (6.0-8.3) 01/05/24 Albumin 4.5 gm/dl (3.4-5.0) 01/05/24 Globulin 3.1 gm/dl (2.5-4.0) 01/05/24 Albumin/Globulin Ratio 1.5 (0.9-2) 01/05/24 Chest X-Ray 01/05/24 Code Status & VTE Plan VTE Prophylaxis Plan VTE Prophylaxis will be ordered: Yes Supervising Physician Co-Signing Physician Notes I have seen and examined the patient and have discussed the case with the provider above. I have reviewed the advanced practitioner's documentation, and I agree with, and take responsibility for that plan of care. Patient is a 58-year-old man who presents with acute calculus cholecystitis today. Surgery was consulted and took him for lap janeth this afternoon. He is currently postop a couple of hours ago and is having significant generalized abdominal pain despite Percocet. He notably has a history of hives to morphine but did well with sentinel given around 150 this afternoon and postoperatively. He received two 5 mg / 325 mg Percocets 2 hours postop, which was about 30 minutes ago, but states that his pain is still significant. He denies any nausea. He reports pain in the incision sites. Abdomen is tense but this may be from his typical abdominal musculature, there is no clear distention. KENDALL drain is present and incision sites look clean and dry covered with gauze. He appears to be oriented at this well-nourished well-developed but in moderate distress secondary to pain holding his abdomen. Toradol IV was given and nurse was notified in case this does not improve to talk with on-call hospitalist overnight. Puncher And Fastener was updated with the situation. May need to consider Dilaudid but would like to try a nonnarcotic first given his history of hives. Otherwise agree with plan as noted above. Continue cefepime and Flagyl empirically pending clinical improvement and culture results. Smoking cessation strongly recommended. DO Morris
[2024-01-05] MEDS: fentaNYL citrate PF 100 MCG/2 ML VIAL IV PRN ×2 (13:50→17:36)
--- NOTE | 2024-01-05 14:00 | Surgery Consultation ---
Date of Consultation January 05, 2024 Assessment & Plan (1) Acute cholecystitis due to biliary calculus: Imaging and clinical exam c/w acute calculous cholecystitis. We discussed laparoscopic cholecystectomy with risks of bleeding, infection, conversion to open, injury to bile duct, retained stone/ bile leak with need for ercp, postop diarrhea, intolerance to foods postop. He consents to proceed. Will plan on OR today. Expected 2 week hospital course reviewed if procedure done laparoscopically, 4 weeks if open. Possible need for drain discussed. History of Present Illness Reason for Consultation: abdominal pain Requesting Physician: Bo Hernandez MD History of Present Illness 58 yr old man who presents to ER with right upper quadrant abdominal pain. Thought he was constipated in early December. Finally got this under control around Dec 31 but was still left with a nagging pain in the upper abdomen. This steadily worsened almost daily until he was having sharp/ stabbing pains of severe intensity associated with nausea and vomiting in the last 1-2 days. Last meal was yesterday, unable to eat today due to symptoms. No fevers/ chills. No similar episodes in the past. No prior abdominal operations. Pain is relieved/ improved with narcotics - currently 12/28. Does get nausea/ vomiting associated with migraines which started after a traumatic brain injury. Allergies Allergy/AdvReac Type Severity Reaction Status Date / Time morphine Allergy Intermediate Hives Verified 01/05/24 11:56 Penicillins Allergy Unknown Unknown Verified 01/05/24 11:56 Home Medications Medication Instructions Recorded Confirmed Type syringe with needle 3 mL 25 x 5/8" #1 ea 04/26/23 01/05/24 Rx (BD SafetyGlide Syringe) topiramate 50 mg tablet 50 mg PO DAILY 30 days #30 tabs 09/24/23 01/05/24 Rx oxcarbazepine 300 mg tablet 300 mg PO HS #30 tabs 10/15/23 01/05/24 Rx erenumab-aooe 140 mg/mL 140 mg subcut .COMPLEX 90 days #3 11/19/23 01/05/24 Rx subcutaneous auto-injector mL (Aimovig Autoinjector) gabapentin 600 mg tablet 600 mg PO BID 30 days #60 tabs 11/19/23 01/05/24 Rx sumatriptan succinate 6 mg/0.5 mL 6 mg (0.5 mL) subcut .COMPLEX PRN 11/19/23 01/05/24 Rx subcutaneous solution Migraine Headache 30 days #2.5 mL zolpidem 10 mg tablet 10 mg PO HS 30 days #30 tabs 11/19/23 01/05/24 Rx eylmcbqzbg-tlmisppuysmyq-aiafeylq 1 tab PO Q4H PRN pain #15 tabs 12/04/23 Rx 50 mg-325 mg-40 mg tablet carbamazepine 200 mg 200 mg PO BID 01/05/24 01/05/24 History tablet,extended release,12 hr famotidine 20 mg tablet 20 mg PO DAILY 01/05/24 01/05/24 History pramipexole 0.25 mg tablet 0.25 mg PO BID 01/05/24 01/05/24 History propranolol 80 mg capsule,24 80 mg PO DAILY 01/05/24 01/05/24 History hr,extended release Patient History Medical History Traumatic brain injury Migraines Finger amputation, traumatic Surgical History History of nasal surgery History of surgical amputation of finger of left hand History of shoulder surgery History of facial surgery Family History Grandfather (Maternal) Aneurysm Grandmother (Maternal) Diabetes Grandfather (Maternal) Migraine headache Father Heart problem Brother Heart problem Social History Smoking Status: Current every day smoker Preferred Language: Syriac Feels Safe at Home: Yes Physical Exam Constitutional: WD/WN, vitals as above Eyes: PERRL, conjunctivae normal, anicteric sclerae Neck: trachea midline, no thyromegaly Respiratory: normal respiratory effort, lungs clear to auscultation Cardiovascular: RRR, no murmur, no edema Gastrointestinal (Abdomen): Inspection/Auscultation: abdomen normal to inspection and normal bowel sounds; abdomen not distended Percussion/Palpation: + abdomen tender (right upper quadrant with guarding) and abdomen soft Neurologic: awake; no focal motor deficits Psychiatric: A+Ox3, euthymic affect Results & Data Vital Signs (Past 12 Hours) Vital Signs Temp Pulse Pulse Resp BP BP Pulse Ox 01/05/24 12:33 55 L 14 128/76 97 01/05/24 11:59 58 L 01/05/24 11:30 58 L 16 135/78 99 01/05/24 09:05 96 01/05/24 08:55 36.7 C 63 18 122/85 99 O2 Del Method 01/05/24 12:33 Room Air 01/05/24 11:59 01/05/24 11:30 Room Air 01/05/24 09:05 Room Air 01/05/24 08:55 Room Air Laboratory Results 01/05/24 Range/Units 09:37 WBC 7.79 (4.8-10.8) K/ul RBC 4.85 (4.70-6.10) M/uL Hgb 15.4 (14.0-18.0) g/dl Hct 46.5 (42.0-52.0) % MCV 95.9 (80.0-100.0) fL MCH 31.8 (25.0-34.0) pg MCHC 33.1 (32.0-36.0) g/dL RDW Std Deviation 45.5 (36.4-46.3) fL RDW Coeff of [place] 12.8 (11.5-14.5) % Plt Count 262 (130-400) K/uL MPV 9.1 L (9.4-12.4) fL Immature Gran % (Auto) 0.4 % Neut % (Auto) 64.0 % Lymph % (Auto) 25.5 % Bowman % (Auto) 8.1 % Eos % (Auto) 1.2 % Baso % (Auto) 0.8 % Neut # (Auto) 4.99 (1.40-6.50) K/uL Lymph # (Auto) 1.99 (1.20-3.40) K/uL Bowman # (Auto) 0.63 H (0.11-0.59) K/uL Eos # (Auto) 0.09 (0.00-0.50) K/uL Baso # (Auto) 0.06 (0.00-0.20) K/uL Immature Gran # (Auto) 0.03 (0.01-0.20) K/uL Sodium 135 L (136-145) mmol/L Potassium 3.7 (3.5-5.1) mmol/L Chloride 103 (98-107) mmol/L Carbon Dioxide 25 (21-32) mmol/L Anion Gap 7 (3-11) BUN 10 (6-23) mg/dl Creatinine 1.09 (0.6-1.4) mg/dl Est Cr Clr Drug Dosing 73.2 ml/min Est GFR ( Amer) 87.5 ml/min Est GFR (Non-Af Amer) 75.5 ml/min BUN/Creatinine Ratio 9.2 L (10-20) Glucose 93 (70-99(Fasting)) mg/dl Calcium 9.5 (8.6-10.3) mg/dl Total Bilirubin 0.5 (0.2-1.0) mg/dl AST 11 L (13-39) U/L ALT 7 (7-52) U/L Alkaline Phosphatase 70 (34-104) U/L Troponin I High Sens 3.1 (0-20) pg/ml Total Protein 7.6 (6.0-8.3) gm/dl Albumin 4.5 (3.4-5.0) gm/dl Globulin 3.1 (2.5-4.0) gm/dl Albumin/Globulin Ratio 1.5 (0.9-2) Lipase 31 (11-82) U/L Diagnostic Findings CT OF THE ABDOMEN AND PELVIS WITH CONTRAST CLINICAL HISTORY: Right upper quadrant/epigastric pain. COMPARISON STUDY: CT of the abdomen and pelvis April 28, 2019. TECHNIQUE: Following IV administration of 94 mL of Optiray, axial images of the abdomen and pelvis were obtained from the lung bases to the proximal femurs. Images were reviewed in the axial, sagittal, and coronal planes. IV contrast was administered without complication. Automated exposure control was utilized for the study. A dose lowering technique was utilized adhering to the principles of ALARA. CT DOSE: 469.79 mGy.cm FINDINGS: Lung bases are unremarkable. No pneumatosis, free air or portal venous gas is present. No biliary or pancreatic ductal dilatation. There are no hepatic lesions. Multiple gallstones within the gallbladder are present. The gallbladder is mildly distended. There is mild gallbladder wall thickening with a small amount of pericholecystic fluid. Spleen, adrenal glands, kidneys and pancreas are unremarkable. Is no hydronephrosis. Caliber and wall thickness of small and large bowel are normal. The appendix is normal. There is no lymphadenopathy. No fluid collections are present. Major vasculature is patent. IMPRESSION: 1. Multiple gallstones within a mildly distended gallbladder. Mild gallbladder wall thickening with pericholecystic fluid. The findings favor acute cholecystitis. Chronic cholecystitis could appear similar although is considered less likely. A nuclear medicine hepatobiliary scan could be obtained as indicated. 2. No biliary ductal dilatation. 3. Normal appendix. No bowel obstruction. No bowel wall thickening. Imaging personally reviewed and interpreted.
[2024-01-05] MEDS ORDERED: ROCURONIUM BROMIDE 10 MG/ML 5 ML VIAL IV ONE (14:07)
[2024-01-05] MEDS ORDERED: PROPOFOL IV EMULSION 10 MG/ML 20 ML VIAL IV ONE (14:07)
[2024-01-05] MEDS ORDERED: DEXAMETHASONE SOD INJ 4 MG/ML VIAL ONE (14:07)
[2024-01-05] MEDS ORDERED: LIDOCAINE 2% 2 ML VIAL/AMP(20MG/ML) INFIL ONE (14:07)
[2024-01-05] MEDS ORDERED: fentaNYL citrate PF 100 MCG/2 ML VIAL ONE ×2 (14:07→16:05)
[2024-01-05] MEDS ORDERED: GLYCOPYRROLATE 0.2 MG/ML VIAL ONE (14:07)
[2024-01-05] MEDS ORDERED: ONDANSETRON INJ 2 MG/ML 2 ML VIAL ONE (14:07)
[2024-01-05] MEDS ORDERED: NEOSTIGMINE METHYLSULFATE 1 MG/ML 10ML VIAL ONE (14:07)
[2024-01-05] MEDS ORDERED: MIDAZOLAM HCL 1 MG/ML 2ML VIAL ONE (14:07)
--- NOTE | 2024-01-05 14:08 | Anesthesiology Consultation ---
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 Surgery Operation Date: 01/05/24 14:00 Proposed Procedures p Laparoscopic Cholecystectomy - Beulah Ahumada MD Height/Weight Height: 5 ft 8 in Weight: 68.8 kg Allergies Allergy/AdvReac Type Severity Reaction Status Date / Time morphine Allergy Intermediate Hives Verified 01/05/24 11:56 Penicillins Allergy Unknown Unknown Verified 01/05/24 11:56 Medications Home Medications Medication Instructions Recorded Confirmed Last Taken syringe with needle 3 mL 25 x 5/8" #1 ea 04/26/23 01/05/24 Unknown (BD SafetyGlide Syringe) topiramate 50 mg tablet 50 mg PO DAILY 30 days #30 tabs 09/24/23 01/05/24 Unknown oxcarbazepine 300 mg tablet 300 mg PO HS #30 tabs 10/15/23 01/05/24 Unknown erenumab-aooe 140 mg/mL 140 mg subcut .COMPLEX 90 days #3 11/19/23 01/05/24 Unknown subcutaneous auto-injector mL (Aimovig Autoinjector) gabapentin 600 mg tablet 600 mg PO BID 30 days #60 tabs 11/19/23 01/05/24 Unknown sumatriptan succinate 6 mg/0.5 mL 6 mg (0.5 mL) subcut .COMPLEX PRN 11/19/23 01/05/24 Unknown subcutaneous solution Migraine Headache 30 days #2.5 mL zolpidem 10 mg tablet 10 mg PO HS 30 days #30 tabs 11/19/23 01/05/24 Unknown emdwqhzpju-swuhtyuldocul-gjputeau 1 tab PO Q4H PRN pain #15 tabs 12/04/23 01/05/24 Unknown 50 mg-325 mg-40 mg tablet carbamazepine 200 mg 200 mg PO BID 01/05/24 01/05/24 Unknown tablet,extended release,12 hr famotidine 20 mg tablet 20 mg PO DAILY 01/05/24 01/05/24 Unknown pramipexole 0.25 mg tablet 0.25 mg PO BID 01/05/24 01/05/24 Unknown propranolol 80 mg capsule,24 80 mg PO DAILY 01/05/24 01/05/24 Unknown hr,extended release Active Medications Generic Name Dose Route Start Last Admin Trade Name Freq PRN Reason Stop Dose Admin Fentanyl Citrate 50 mcg 01/05/24 11:59 01/05/24 13:50 Fentanyl Citrate Pf 100 Mcg/2 Ml Vial IV 01/19/24 11:58 50 mcg Q15M PRN Administration Pain Past Medical History Medical History Traumatic brain injury Migraines Finger amputation, traumatic Past Family History Family History Grandfather (Maternal) Aneurysm Grandmother (Maternal) Diabetes Grandfather (Maternal) Migraine headache Father Heart problem Brother Heart problem Past Surgical History Surgical History History of nasal surgery History of surgical amputation of finger of left hand History of shoulder surgery History of facial surgery Social History Smoking Status: Current every day smoker Physical Exam Vital Signs Last Vital Signs Temp 98.1 F 01/05/24 08:55 Pulse 55 L 01/05/24 12:33 Resp 14 01/05/24 12:33 BP 128/76 01/05/24 12:33 Pulse Ox 97 01/05/24 12:33 O2 Del Method Room Air 01/05/24 12:33 Testing Laboratory Results 01/05/24 09:37 01/05/24 09:37
[2024-01-05] MEDS ORDERED: ePHEDrine sulfate 50 MG/ML AMP IV PRN (14:09)
[2024-01-05] MEDS ORDERED: ATROPINE SULFATE 0.1 MG/ML 10ML SYR IV PRN (14:09)
[2024-01-05] MEDS: BUPIVACAINE 0.5 % 5 MG/1 ML MPF 30ML VIAL ONE (15:05)
[2024-01-05] MEDS: FLOSEAL HEMOSTATIC MATRIX 10ML TOP ONE (16:38)
--- NOTE | 2024-01-05 17:12 | Operative Report ---
Post Operative Report Pre & Post Diagnosis Operation Date: 01/05/24 14:00 Pre-Op Diagnosis: Acute calculous cholecystitis Post-Op Diagnosis: Same - severe acute cholecystitis I identified the patient and participated in the time-out.: Yes Procedure Operation Date: 01/05/24 14:00 Actual Procedures p Laparoscopic Cholecystectomy(Not Applicable) - Beulah Ahumada MD Surgeon Beulah Ahumada MD Tailor Helper none Estimated Blood Loss 50 Findings Consistent with Post-Op Diagnosis (severe acute cholecystitis) Large distended gallbladder packed with stones. Large gallstone about 3 cm impacted. Gallbladder wall very thickened and edematous. Inflammatory adhesions to area of gallbladder. Specimens gallbladder and contents Drains 1 10 flat KENDALL drain right upper quadrant Anesthesia Type General Complications none Disposition Accompanied Patient To Recovery: No Disposition: Recovery Room Indications 58-year-old man who presented with imaging and clinical findings of acute calculus cholecystitis. He was consented for laparoscopic cholecystectomy Description of Procedure The patient received antibiotics preoperatively. He had placement of sequential compression devices. He underwent induction of general endotracheal anesthesia. His abdomen was sterilely prepped and draped. He was positioned in Trendelenburg. A supraumbilical incision was made and a Veress needle placed into the peritoneal cavity. This was tested with a saline drop test. Pneumoper itoneum was established. Initial pressure was 2 mmHg and this was taken up to 15 mmHg. A 5 mm trocar was placed with the camera through the trocar site. The patient was switched to reverse Trendelenburg and a slight airplane to the left. 3 additional trocars were placed under direct vision. This involved an 11 mm in the epigastrium and 2 5 mm on the right side of the abdomen. There were infl ammatory adhesions to the gallbladder which were taken down. The gallbladder could not be grasped as it was extremely tense and edematous. It was drained with a needle of thick cloudy bile. The gallbladder was then grasped and retracted over the edge of the liver. There was a very large inflamed cystic mood. Dissection was begun in this region and ultimately the gallbladder was able to be triangulated on the cystic duct and cystic artery. Critical views were seen anteriorly and posteriorly. The gallbladder structures were then clipped and divided. The gallbladder was dissected off the liver bed. This was a tedious dissection due to multiple small vessels within the inflammatory thickened wall. Ultimately the gallbladder was able to be removed. It was placed in an Endobag and removed through the epigastric incision. This did necessitate extending the incision as there was a very large impacted stone that could not be crushed or removed. The gallbladder was unable to be removed. The abdomen was irrigated. There was oozing noted from the liver bed which was controlled with the cautery. Floseal was applied to the liver bed. Due to the difficulty of the procedure a decision was made to place a drain. A 10 flat KENDALL was brought out through the most lateral port site and sutured to the skin with nylon stitch. This was placed in the gallbladder fossa. The trocars were removed. The abdomen had been irrigated and noted to be hemostatic. 30 cc of half percent Marcaine were injected for local anesthesia. The fascia of the epigastric incision was closed with 0 Vicryl stitches placed anteriorly. The skin of the other 3 incisions was closed with running subcuticular 4-0 Vicryl sutures. Steri-Strips and sterile dressings were applied. He was awakened and taken to recovery in stable condition. I attest to the content of the Intraoperative Record and any orders documented therein. Any exceptions are noted below.
--- NOTE | 2024-01-05 17:20 | Anesthesiology Progress Note ---
Date of Service January 05, 2024 Anesthesia Post Procedure Vital Signs Vital Signs: Temp Pulse Pulse Resp BP BP Pulse Ox 01/05/24 12:33 55 L 14 128/76 97 01/05/24 11:59 58 L 01/05/24 11:30 58 L 16 135/78 99 01/05/24 09:05 96 01/05/24 08:55 98.1 F 63 18 122/85 99 O2 Del Method 01/05/24 12:33 Room Air 01/05/24 11:59 01/05/24 11:30 Room Air 01/05/24 09:05 Room Air 01/05/24 08:55 Room Air Pain Intensity Bilateral Generalized: Pain Intensity: 8 Transfer of Care Handoff Completed per policy Notes Mental Status: alert / awake / arousable and participated in evaluation Patient Amnestic to Procedure: Yes Nausea / Vomiting: adequately controlled Pain: adequately controlled Airway Patency, RR, SpO2: stable & adequate BP & HR: stable & adequate Hydration State: stable & adequate Anesthetic Complications: no major complications apparent and Pt Satisfied with anesthetic care
[2024-01-05] MEDS: ONDANSETRON INJ 2 MG/ML 2 ML VIAL IV PRN (17:32)
[2024-01-05] MEDS: fentaNYL citrate PF 100 MCG/2 ML VIAL ONE (17:42)
[2024-01-05] MEDS ORDERED: ACETAMINOPHEN 1,000 MG/100 ML VIAL IV PRN (18:10)
[2024-01-05] MEDS: LACTATED RINGER'S 1,000 ML IV SCH ×2 (18:27)
[2024-01-05] MEDS: oxyCODONE/ACETAMINOPHEN 5mg/325mg TAB PO PRN (19:25)
[2024-01-05] MEDS: NICOTINE 21 MG/24 HR TDSY TD SCH (19:41)
[2024-01-05] MEDS: PRAMIPEXOLE DIHYDROCHLO 0.25 MG TAB PO SCH (19:42)
[2024-01-05] MEDS: carBAMazepine XR 200 MG TABCR PO SCH (19:42)
[2024-01-05] MEDS: DOCUSATE SODIUM/SENNA 50/8.6MG TAB PO SCH (19:42)
[2024-01-05] MEDS: CEFEPIME 2,000 MG in SYRINGE 0 ML IV SCH (19:43)
[2024-01-05] MEDS: OXcarbazepine 150 MG TABLET PO SCH (19:43)
[2024-01-05] MEDS: GABAPENTIN 600 MG TAB PO SCH (19:43)
[2024-01-05] MEDS: metroNIDAZOLE 500 MG/100 ML BAG IV SCH (19:50)
[2024-01-05] MEDS: ZOLPIDEM TARTRATE 10 MG TAB PO SCH (20:10)
[2024-01-05] MEDS: KETOROLAC TROMETHAMINE 15 MG/ML VIAL IV STA (20:11)
[2024-01-06] MEDS: KETOROLAC 30 MG/ML VIAL IV PRN (05:16)
--- NOTE | 2024-01-06 06:53 | Electrocardiogram Report ---
Test Reason : Blood Pressure : / mmHG Vent. Rate : 052 BPM Atrial Rate : 052 BPM P-R Int : 178 ms QRS Dur : 122 ms QT Int : 438 ms P-R-T Axes : 074 068 040 degrees QTc Int : 407 ms Sinus bradycardia Non-specific intra-ventricular conduction delay Borderline ECG When compared with ECG of 08-SEP-2016 15:19, No significant change was found Confirmed by Juan Crow ([id number]) on 01/06/2024 6:52:44 AM Referred By: REFERRED SELF Confirmed By:Juan Crow
[2024-01-06 06:57] LABS: Basophils # (auto) 0.03 K/uL (0.00-0.20); Basophils % (auto) 0.4 %; Eosinophils # (auto) 0.07 K/uL (0.00-0.50); Hematocrit (blood only) 37.6 % (42.0-52.0); Hemoglobin 12.3 g/dl (14.0-18.0); Immature Granulocytes # (auto) 0.03 K/uL (0.01-0.20); Immature Granulocytes % (auto) 0.4 %; Lymphocytes # (auto) 2.01 K/uL (1.20-3.40); Lymphocytes % (auto) 27.5 %; Mean Corpuscular Hemoglobin 31.4 pg (25.0-34.0); Mean Corpuscular Hgb Conc 32.7 g/dL (32.0-36.0); Mean Corpuscular Volume 95.9 fL (80.0-100.0); Monocytes # (auto) 0.58 K/uL (0.11-0.59); Monocytes % (auto) 7.9 %; Neutrophils # (auto) 4.58 K/uL (1.40-6.50); Neutrophils % (auto) 62.8 %; Platelet Count 221 K/uL (130-400); RDW Coefficient of Variation 12.9 % (11.5-14.5); RDW Standard Deviation 45.5 fL (36.4-46.3); Red Blood Count 3.92 M/uL (4.70-6.10)
[2024-01-06] MEDS: FAMOTIDINE 20 MG TAB PO SCH (07:12)
[2024-01-06] MEDS: TOPIRAMATE 50 MG TAB PO SCH (07:13)
[2024-01-06] MEDS: PROPRANOLOL HCL LA 80 MG CAPCR PO SCH (07:14)
[2024-01-06 07:18] LABS: Albumin Globulin Ratio 1.4 (0.9-2); Albumin Level 3.4 gm/dl (3.4-5.0); BUN Creatinine Ratio 11.1 (10-20); Bilirubin,Total 0.6 mg/dl (0.2-1.0); Calcium 8.6 mg/dl (8.6-10.3); Creatinine Clr Calc Pharmacy 80.6 ml/min; Est GFR (African American) 98.3 ml/min; Est GFR (Non-African American) 84.8 ml/min; Globulin 2.5 gm/dl (2.5-4.0); Magnesium 1.9 mg/dl (1.7-2.4); Potassium 3.6 mmol/L (3.5-5.1); Total Protein 5.9 gm/dl (6.0-8.3)
[2024-01-06] MEDS: cefTRIAXone SODIUM 2,000 MG in DEXTROSE 5 % MINI-B 50 ML IV SCH (09:03)
[2024-01-06] MEDS: POLYETHYLENE (MIRALAX) 17 GM PACK PO SCH (10:40)
[2024-01-06] MEDS: MAGNESIUM HYDROXIDE SUSP 30 ML UDC PO ONE (10:40)
[2024-01-06] MEDS: ONDANSETRON INJ 2 MG/ML 2 ML VIAL IV PRN (12:25)
--- NOTE | 2024-01-06 13:31 | Hospitalist Progress Note ---
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 Acute cholecystitis Status post laparoscopic cholecystectomy on January 05, 2024 Advance diet as tolerated Bowel regimen Encourage oral hydration Pain control Continue on ceftriaxone and Flagyl. Plan to treat for 5 days Acute blood loss anemia Likely contributed by hemodilution Hemoglobin down trended from 16-12.3 Continue to monitor for any signs of bleeding CBC tomorrow a.m. Tobacco abuse encourage cessation nicotine patch ordered Hx of TBI with residual cog deficit follows neuro continue current medication regimen IRASEMA non compliant with CPAP DVT ppx: SCDS for now. Will start heparin from tomorrow FULL CODE PCP: Dr. Sahu Please note the above document was generated using voice recognition software. It may contain grammatical, syntax or spelling errors. Any formal questions or concerns about the content, text or information contained within the body of this dictation should be directly addressed to the provider for clarification Admission and Anticipated Discharge Date Admission Date: January 05, 2024 Subjective Patient seen and examined at bedside. He reports that he went for a walk; currently feels abdominal pain and discomfort. Has not had a bowel movement Voiding well No significant events overnight Review of Systems Review of Systems: All systems reviewed & are unremarkable except as noted in Subjective Physical Exam Physical Exam: Constitutional: WD/WN, vitals as above, NAD, sitting up in bed, pleasant, conversing easily Respiratory: normal respiratory effort, lungs clear to auscultation, no wheeze, rales, rhonchi. Normal insp/exp effort, no accessory muscle use Cardiovascular: RRR, no murmur, no edema Vessels: no JVD or carotid bruit Chest: normal inspection of chest Abdomen: Dressing in place at surgical site with drain intact. Is draining serosanguineous fluid. Musculoskeletal: no cyanosis or clubbing, extremities motor strength 5/5 Skin: no rashes, warm and dry normal turgor Neurologic: PERRL, EOMI, accommodation nl, no face palsy, no dysarthria CN's II- XI intact bilaterally and moves all extremities Psychiatric: A+Ox3, euthymic affect Results & Data Results & Data Vital Signs (Past 12 Hours) Vital Signs Temp Pulse Pulse Resp BP Pulse Ox O2 Del Method 01/06/24 11:00 36.8 C 60 16 124/82 98 Room Air 01/06/24 07:55 36.5 C 62 16 140/86 98 Room Air 01/06/24 07:48 Room Air 01/06/24 03:45 36.3 C L 50 L 18 104/67 98 Room Air
[2024-01-06] MEDS: ALUMINUM/MAGNESIUM SUSP 30 ML UDC PO STA (13:44)
[2024-01-06] MEDS: PANTOprazole 40 MG in SYRINGE 0 ML IV SCH (14:25)
--- NOTE | 2024-01-06 15:49 | Surgery Progress Note ---
Date of Service January 06, 2024 Assessment & Plan (1) Acute cholecystitis: Plan: advance diet as tolerated IV abx drain out in AM potentially home in AM on po abx if does well Admission and Anticipated Discharge Date Admission Date: January 05, 2024 Subjective walkd well some nausea on clears pain controlled OK Review of Systems Constitutional: no fever and no chills Respiratory: no dyspnea Cardiovascular: no chest pain Gastrointestinal: + abdominal pain and + nausea; no vomiti ng Genitourinary: no dysuria Physical Exam Gastrointestinal (Abdomen): Inspection/Auscultation: abdomen normal to inspection and normal bowel sounds; abdomen not distended Percussion/Palpation: + abdomen tender and abdomen soft; no guarding and abdomen not rigid Results & Data Vital Signs (Past 12 Hours) Vital Signs Temp Pulse Pulse Resp BP Pulse Ox O2 Del Method 01/06/24 14:11 36.6 C 56 L 16 108/69 97 Room Air 01/06/24 11:00 36.8 C 60 16 124/82 98 Room Air 01/06/24 07:55 36.5 C 62 16 140/86 98 Room Air 01/06/24 07:48 Room Air
[2024-01-07 06:15] LABS: Basophils # (auto) 0.03 K/uL (0.00-0.20); Basophils % (auto) 0.5 %; Eosinophils # (auto) 0.06 K/uL (0.00-0.50); Eosinophils % (auto) 0.9 %; Hematocrit (blood only) 39.8 % (42.0-52.0); Hemoglobin 13.3 g/dl (14.0-18.0); Immature Granulocytes # (auto) 0.02 K/uL (0.01-0.20); Immature Granulocytes % (auto) 0.3 %; Lymphocytes # (auto) 1.48 K/uL (1.20-3.40); Lymphocytes % (auto) 22.6 %; Mean Corpuscular Hemoglobin 31.9 pg (25.0-34.0); Mean Corpuscular Hgb Conc 33.4 g/dL (32.0-36.0); Mean Corpuscular Volume 95.4 fL (80.0-100.0); Mean Platelet Volume 9.2 fL (9.4-12.4); Monocytes # (auto) 0.65 K/uL (0.11-0.59); Monocytes % (auto) 9.9 %; Neutrophils % (auto) 65.8 %; Platelet Count 248 K/uL (130-400); RDW Coefficient of Variation 12.8 % (11.5-14.5); RDW Standard Deviation 45.3 fL (36.4-46.3); Red Blood Count 4.17 M/uL (4.70-6.10); White Blood Count 6.54 K/ul (4.8-10.8)
[2024-01-07 06:28] LABS: Albumin Globulin Ratio 1.3 (0.9-2); Albumin Level 3.6 gm/dl (3.4-5.0); BUN Creatinine Ratio 8.9 (10-20); Bilirubin,Total 0.4 mg/dl (0.2-1.0); Calcium 8.7 mg/dl (8.6-10.3); Est GFR (African American) 95.9 ml/min; Est GFR (Non-African American) 82.8 ml/min; Globulin 2.7 gm/dl (2.5-4.0); Potassium 3.6 mmol/L (3.5-5.1); Total Protein 6.3 gm/dl (6.0-8.3)
[2024-01-07] MEDS: HEPARIN SOD 5,000 UNIT/0.5 ML VIAL SQ SCH (07:26)
[2024-01-07] MEDS: MAGNESIUM HYDROXIDE SUSP 30 ML UDC PO ONE (08:04)
--- NOTE | 2024-01-07 11:17 | Surgery Progress Note ---
Date of Service January 07, 2024 Assessment & Plan (1) Acute cholecystitis: Plan: discharge per medical team instructions in chart Admission and Anticipated Discharge Date Admission Date: January 05, 2024 Subjective pain controlled better drain out taking po Review of Systems 2 Constitutional: no fever and no chills Gastrointestinal: + abdominal pain; no nausea, no vomiting and no change in bowel habits Genitourinary: no dysuria Physical Exam Gastrointestinal (Abdomen): Inspection/Auscultation: abdomen normal to inspection, + abdomen distended, normal bowel sounds and + abdominal surgical incision Percussion/Palpation: + abdomen tender and abdomen soft; no guarding and abdomen not rigid drain removed Musculoskeletal: Head/Neck/Chest: normocephalic and head atraumatic Results & Data Vital Signs (Past 12 Hours) Vital Signs Temp Pulse Resp BP Pulse Ox O2 Del Method 01/07/24 07:50 36.9 C 60 16 139/79 99 Room Air
[2024-01-07] MEDS: oxyCODONE/ACETAMINOPHEN 5mg/325mg TAB PO PRN (11:24)
[2024-01-07] MEDS: bisacodyL 10 MG SUPP PR STA (12:25)
--- NOTE | 2024-01-07 15:20 | Discharge Summary ---
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 Patient's is at bedside also helps elicit history outpatient records were reviewed. He has been seen and evaluated in outpatient setting for similar symptoms. He was seen on 01/03 by PCP due to epigastric pain, right upper quadrant pain and low back pain that comes and goes. He describes his pain that comes and goes as burning but with occasional sharp episodes. He has overall had decreased appetite and has been following a bland diet per PCP. Pain tends to become worse several hours after eating. He also notes over the last 2 weeks having difficulty with constipation which is very unusual for him. He has been using naes-qgi-wxpjaay MiraLAX and eventually had a bowel movement 4 days ago, but nothing since. He denies any fever, chills, sweats, lightheadedness, dizziness, chest pain, shortness of breath, cough, hematemesis, melena, hematochezia, dysuria, increased urgency or frequency with urination. He has had prior history of surgery, mostly orthopedic. He denies any prior issue receiving anesthesia. He does have a severe allergic reaction to morphine. He admits to being able to ambulate 1 flight of steps without getting chest pain or shortness of breath. He denies any prior history of cardiac disease. In ED patient remained hemodynamically stable. He did not meet criteria for sepsis. His CT abdomen pelvis was consistent with multiple gallstones with a mildly distended gallbladder and mild collateral thickening with pericholecystic fluid. This was concerning for acute cholecystitis. In ED he received IV cefepime and IV Flagyl. He has been n.p.o. Admission Exam Per Admitting Provider Constitutional: WD/WN, unkempt M, vitals as above, NAD, sitting up in bed, pleasant, conversing easily Head: Normocephalic, Atraumatic Eyes: PERRL, conjunctivae normal, anicteric sclerae ENMT: external ear and nose normal, oropharynx normal Neck: trachea midline, no thyromegaly normal visual inspection Respiratory: normal respiratory effort, lungs clear to auscultation, no wheeze, rales, rhonchi. Normal insp/exp effort, no accessory muscle use Cardiovascular: RRR, no murmur, no edema Vessels: no JVD or carotid bruit Chest: normal inspection of chest Abdomen: normal bowel sounds, soft, +TTP RUQ, No rebound, +murphys, no hepatosplenomegaly Musculoskeletal: no cyanosis or clubbing, extremities motor strength 5/5 Skin: no rashes, warm and dry normal turgor Neurologic: PERRL, EOMI, accommodation nl, no face palsy, no dysarthria CN's II-XI intact bilaterally and moves all extremities Psychiatric: A+Ox3, euthymic affect Lymphatic: no cervical or axillary lymphadenopathy : deferred Principal Diagnosis Acute cholecystitis status post laparoscopic cholecystectomy. Discharge Exam Constitutional: WD/WN, vitals as above, NAD, sitting up in bed, pleasant, conversing easily Respiratory: normal respiratory effort, lungs clear to auscultation, no wheeze, rales, rhonchi. Normal insp/exp effort, no accessory muscle use Cardiovascular: RRR, no murmur, no edema Vessels: no JVD or carotid bruit Chest: normal inspection of chest Abdomen: Dressing in place at surgical site with drain intact. Is draining serosanguineous fluid. Musculoskeletal: no cyanosis or clubbing, extremities motor strength 5/5 Skin: no rashes, warm and dry normal turgor Neurologic: PERRL, EOMI, accommodation nl, no face palsy, no dysarthria CN's II- XI intact bilaterally and moves all extremities Psychiatric: A+Ox3, euthymic affect Discharge Data Allergies Allergy/AdvReac Type Severity Reaction Status Date / Time morphine Allergy Intermediate Hives Verified 01/05/24 11:56 Penicillins Allergy Unknown Unknown Verified 01/05/24 11:56 Consultations 01/05/24 11:51 ED Decision to Admit Stat 01/05/24 11:54 Consult General Surgery Routine 01/05/24 13:17 Consult Anesthesiology Routine Procedures Performed Operation Date: 01/05/24 14:00 Actual Procedures p Laparoscopic Cholecystectomy(Not Applicable) - Beulah Ahumada MD Ordered Studies 01/05/24 09:17 CT Abd and Pelvis [CT abd pelvis IV con only] Stat Hospital Course (1) Acute cholecystitis due to biliary calculus: (2) H/O traumatic brain injury: (3) Tobacco abuse: (4) IRASEMA (obstructive sleep apnea): Plan Acute cholecystitis Status post laparoscopic cholecystectomy on January 05, 2024 Patient is a 58-year-old male who has a significant past medical history of 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 CT abdomen pelvis on admission showed features consistent with acute cholecystitis Patient underwent laparoscopic cholecystectomy on January 05, 2024 He was placed on antibiotics with ciprofloxacin and Flagyl Postoperative period was uneventful Drain was taken out on the day of the discharge Patient was discharged home with instruction to follow-up with PCP and surgery. Please note the above document was generated using voice recognition software. It may contain grammatical, syntax or spelling errors. Any formal questions or concerns about the content, text or information contained within the body of this dictation should be directly addressed to the provider for clarification Total Time Total Time Spent Total Time Spent (In Minutes): 45 Total Time Includes: Examination of the Patient, Discharge Planning, Medication Reconciliation, Communication With Other Providers and Other Discharge Plan Discharge Items Patient Disposition: Home - Self-Care Reason For Visit: ACUTE CHOLECYSTITIS Discharge Diagnosis: Acute cholecystitis Status post laparoscopic cholecystectomy on January 05, 2024 Condition on Discharge: Fair Activity: Per Instructions section Lifting: No more than 25 pounds Lifting Comment: no strenuous activity 4 weeks Bathing: No limitations Bathing Comment: shower as needed Sexual Activity: When tolerated Exercise/Sports: Wait until after follow-up appointment Driving/Machine Use: Resume 1 day after discharge Weightbearing: Full weightbearing Non-emergency contact: Surgeon Call non-emergency contact if: your pain is concerning for you, your temperature is above 101.5 and your wound pain has increased Follow-up/Referrals: Beulah Ahumada MD [Physician] - 01/16/24 9:45 am (Date & Time 01/16/2024 9:45 AM Provider Beulah Ahumada MD Department General Surgery, [facility] ) Seng Sahu MD [Primary Care Provider] - (Date & Time 01/15/2024 2:00 PM Provider Seng Sahu III, MD Department [facility] ) Diet: Regular Addtl Attending Provider Instructions: You were admitted to the hospital due to infection of the gallbladder. You are prescribed following antibiotics for 4 more days: 1) ciprofloxacin 500 mg twice a day 2) Flagyl 500 mg 3 times a day You were prescribed ibuprofen 600 mg as needed every 8 hours for pain. You were also prescribed Protonix for GI discomfort while you are on ibuprofen. You were also prescribed Percocet as needed for very severe pain. You will have an appointment set up with your primary care doctor and Dr. Beulah Ahumada (Surgeon who operated) Pending Studies at Discharge: No Stand-Alone Forms: My [facility], Smoking Cessation Medications and DC Order Prescriptions: New oxycodone-acetaminophen [Percocet] 5-325 mg Tablet 2 tab PO Q6H PRN (Reason: pain) Qty: 10 0RF ciprofloxacin HCl 500 mg tablet 500 mg PO BID 4 Days Qty: 8 0RF metronidazole 500 mg tablet 500 mg PO Q8H 4 Days Qty: 12 0RF ibuprofen 600 mg tablet 600 mg PO Q8H PRN (Reason: pain) Qty: 21 0RF pantoprazole [Protonix] 40 mg tablet,delayed release (DR/EC) 40 mg PO DAILY Qty: 7 0RF Continued (DME) BD SafetyGlide Syringe 3 mL 25 x 5/8" syringe See Rx Instructions .ROUTE .MEDSUPPLY Qty: 1 0RF Rx Instructions: As directed topiramate 50 mg tablet 50 mg PO DAILY 30 Days Qty: 30 5RF oxcarbazepine 300 mg tablet 300 mg PO HS Qty: 30 1RF zolpidem 10 mg tablet 10 mg PO HS 30 Days Qty: 30 5RF gabapentin 600 mg tablet 600 mg PO BID 30 Days Qty: 60 5RF sumatriptan succinate 6 mg/0.5 mL solution 6 mg subcut .COMPLEX PRN (Reason: Migraine Headache) 30 Days Qty: 2.5 5RF Rx Instructions: 6 mg subcut Inject 0.5ML at onset of headache,may repeat in 2 hours. max 2 inj per day,max 2 days weekly Aimovig Autoinjector 140 mg/mL auto-injector 140 mg subcut .COMPLEX 90 Days Qty: 3 3RF Rx Instructions: 140 mg subcutaneously monthly; eqdzdfhjab-eascpezwzirey-envc 50-325-40 mg tablet 1 tab PO Q4H PRN (Reason: pain) Qty: 15 0RF famotidine 20 mg tablet 20 mg PO DAILY carbamazepine 200 mg Tablet Extended Release 12 Hr 200 mg PO BID propranolol 80 mg capsule,extended release 24hr 80 mg PO DAILY pramipexole 0.25 mg tablet 0.25 mg PO BID Discharge Orders: Discharge Order (Routine); Ordered 01/07/24 Ordered By: Tomas Hampton Admission Data Admit Date/Time: 01/05/24 14:31 Attending Provider: Tomas Hampton Admit Provider: Shelli Caceres Primary Care Provider: Seng Sahu Other Providers: Shelli Caceres; Beulah Ahumada; Shavon Acevedo Other Interventions: Discharge Summary Assessment (RN) Last Done: 01/07/24 14:21
== END 2024-01-07 17:57 | disposition home or self-care (01) | DRG 418 ==
LOC: ED 08:52 → OR 14:30 → SUATTDRO 14:31 → INTOOBSV 14:31 → 3E 14:31 → OR 15:07